=== PATIENT | male | born 1995 | race Two or more races ===

== ENCOUNTER 2021-03-08 16:25 | Emergency (ER) | payer OTHER, SELFPAY ==
[~2021-03-08] VITALS: Ht 170.2 cm; Wt 95.8 kg
[2021-03-08 16:25] VITALS: BP 133/67
[2021-03-08] MEDS ORDERED: LEXA1TAB2 (16:37)
--- NOTE | 2021-03-08 17:45 | REP ---
INDICATION: fall/bruising. COMPARISON: None. TECHNIQUE: Four views FINDINGS: No acute fracture or destructive osseous lesion. The mortise is intact. IMPRESSION: Within normal limits <Electronically signed by Sukumar Parsons > 03/08/21 [id number]
--- NOTE | 2021-03-08 17:46 | REP ---
INDICATION: fall/bruising. COMPARISON: None. TECHNIQUE: Four views FINDINGS: The joint spaces are symmetric and relatively well maintained. There is no evidence of acute fracture or destructive osseous lesion. IMPRESSION: Negative. <Electronically signed by Sukumar Parsons > 03/08/21 [id number]
== END 2021-03-08 20:57 | disposition left against medical advice (07) ==
LOC: M ED 16:25
DX: Z53.29 Procedure and treatment not carried out because of patient's decision for other reasons (principal)

== ENCOUNTER 2022-09-16 11:12 | Emergency (ER) | payer OTHER, SELFPAY ==
[~2022-09-16] VITALS: Ht 170.2 cm; Wt 94.3 kg
[~2022-09-16 11:12] MED LIST: LEXA1TAB2
[2022-09-16 11:14] VITALS: BP 168/102
[2022-09-16] MEDS ORDERED: IBUPROFEN 600MG TAB PO ONE (12:10)
[2022-09-16] MEDS ORDERED: PRED20TA PO (12:10)
== END 2022-09-16 12:26 | disposition home or self-care (01) ==
LOC: M ED 11:12
DX: J03.00 Acute streptococcal tonsillitis, unspecified (principal); F41.9 Anxiety disorder, unspecified

== ENCOUNTER 2023-07-30 17:25 | Emergency (ER) | payer OTHER, SELFPAY ==
[~2023-07-30] VITALS: Ht 170.2 cm; Wt 98.3 kg
[~2023-07-30 17:25] MED LIST changes: +PRED20TA PO
[2023-07-30 19:50] VITALS: BP 130/72; TEMP 98.6; O2SAT 98
== END 2023-07-30 20:50 | disposition left against medical advice (07) ==
LOC: M ED 17:25
DX: Z53.21 Procedure and treatment not carried out due to patient leaving prior to being seen by health care provider (principal)

== ENCOUNTER 2023-12-16 08:49 | Emergency (ER) | payer OTHER ==
[~2023-12-16] VITALS: Ht 170.2 cm; Wt 98.0 kg
[2023-12-16] MEDS: methylPREDNISolone 125MG 2ML VIAL IM ONE (12:14)
[2023-12-16] MEDS ORDERED: PRED20TA PO (13:17)
[2023-12-16 13:32] VITALS: BP 141/85; TEMP 97; O2SAT 100
== END 2023-12-16 13:36 | disposition home or self-care (01) ==
LOC: M ED 08:49
DX: M54.50 Low back pain, unspecified (principal); F17.210 Nicotine dependence, cigarettes, uncomplicated; F12.10 Cannabis abuse, uncomplicated; F10.10 Alcohol abuse, uncomplicated; Z79.52 Long term (current) use of systemic steroids; Z79.899 Other long term (current) drug therapy
CPT/HCPCS: 72110; 96372; 99284; J2919